=== PATIENT | male | born 1975 | race American Indian/Alaskan Native ===

== ENCOUNTER 2016-03-06 21:29 | Emergency (ER) | payer MEDICARE ==
[2016-03-07] MEDS ORDERED: CATAPRES ONE (02:08)
[2016-03-07] MEDS ORDERED: BENADRYL ONE (02:08)
[2016-03-07] MEDS ORDERED: DECADRON ONE (02:08)
[2016-03-07] MEDS ORDERED: PEPCID IV ONE ×2 (02:09→02:22)
[2016-03-07] MEDS ORDERED: DECADRON IM ONE (02:17)
[2016-03-07] MEDS ORDERED: BENADRYL IM ONE (02:21)
[2016-03-07] MEDS ORDERED: CATAPRES PO ONE ×2 (02:24→03:55)
--- NOTE | 2016-03-07 02:43 | Emergency Department Report ---
HPI - General Chief Complaint: Allergic Reaction Time Seen by Provider: 03/07/16 02:08 - HPI HPI: 40-year-old male with history of chronic hypertension presents today with an allergic reaction 7 days. Complaining of bilateral periorbital and facial edema. Patient has tried Benadryl without relief. Denies difficulty in breathing or difficulty in swallowing. Denies fever, chills, nausea, vomiting, chest pain, shortness of breath, abdominal pain. Allergen unknown. Denies history of similar symptoms. Past history of hypertension and has not taken his blood pressure medication today. ED Past Medical Hx - Past Medical History Previous Medical History?: Yes Hx Hypertension: Yes (Multiple Rx) Hx Renal Disease: Yes (Dialysis M W F) - Surgical History Past Surgical History?: Yes Additional Surgical History: Dialysis shunt - Social History Smoking Status: Current Some Day Smoker Substance Use Type: None - Medications Home Medications: Home Medications Medication Instructions Recorded Confirmed Last Taken Type Diphenhydramine HCl [Benadryl 25 mg PO Q6H #30 tablet 03/07/16 Unknown Rx Allergy TAB] Famotidine [Pepcid] 20 mg PO BID #30 tablet 03/07/16 Unknown Rx Prednisone [predniSONE 10 mg 10 mg PO .TAPER #1 tab.ds.pk 03/07/16 Unknown Rx (6-Day Pack, 21 Tabs)] ED Review of Systems ROS: Stated complaint: EYE SWELLING/ALLERGIC REACTION Other details as noted in HPI Constitutional: denies: chills, fever, malaise Eyes: denies: eye pain, eye discharge, vision change ENT: denies: ear pain, throat pain, congestion Respiratory: denies: cough, shortness of breath, wheezing Cardiovascular: denies: chest pain, palpitations Endocrine: no symptoms reported Gastrointestinal: denies: abdominal pain, nausea, vomiting Skin: pruritus Neurological: denies: headache, weakness Physical Exam - Physical Exam Vital Signs: Vital Signs 03/06/16 03/07/16 03/07/16 21:37 01:57 02:25 Temperature 98.7 F 98.8 F Pulse Rate 85 82 82 Respiratory 18 20 Rate Blood Pressure 177/113 Blood Pressure 183/118 177/113 [Right] O2 Sat by Pulse 100 98 Oximetry Physical Exam: GENERAL: The patient is well-developed and well-nourished. Patient is in NAD. HEAD: Normocephalic. Atraumatic. FACE: Minimal facial edema noted. No rash or erythema noted. EYES: Extraocular motions are intact, PERRL. NOSE: Normal nasal mucosa with no nasal discharge. THROAT: No erythema, swelling or exudates. NECK: Supple, nontender, without lymphadenopathy. CHEST/LUNGS: Clear to auscultation throughout. HEART/CARDIOVASCULAR: Regular rate and rhythm. No murmurs, rubs or gallops. ABDOMEN: Abdomen is soft, nontender. Bowel sounds normoactive. No guarding or rebound tenderness. EXTREMITIES:Peripheral pulses intact. Capillary refill less than 2 seconds. NEURO: Alert and oriented x 3. Normal gait. ED Course Vital Signs 03/06/16 03/07/16 03/07/16 21:37 01:57 02:25 Temperature 98.7 F 98.8 F Pulse Rate 85 82 82 Respiratory 18 20 Rate Blood Pressure 177/113 Blood Pressure 183/118 177/113 [Right] O2 Sat by Pulse 100 98 Oximetry ED Medical Decision Making - Lab Data Vital Signs 03/06/16 03/07/16 03/07/16 21:37 01:57 02:25 Temperature 98.7 F 98.8 F Pulse Rate 85 82 82 Respiratory 18 20 Rate Blood Pressure 177/113 Blood Pressure 183/118 177/113 [Right] O2 Sat by Pulse 100 98 Oximetry 03/07/16 03/07/16 03:48 04:04 Temperature Pulse Rate 74 74 Respiratory 18 Rate Blood Pressure 178/103 Blood Pressure 178/103 [Right] O2 Sat by Pulse 97 Oximetry - Medical Decision Making 32-year-old male with a history of chronic hypertension presents today with facial edema and pruritus. Patient did not take his blood pressure medication today and was given clonidine 0.3 mg. Patient is recommended to take his blood pressure medication as prescribed and follow up with primary care provider. Patient was given Pepcid, Decadron, Benadryl and reports minimal relief. Consulted with Dr. Allen. Patient is in no acute distress at this time. He will be discharged home and is encouraged to follow up with a primary care provider. He will be sent home on Benadryl, steroid pack, Pepcid and is encouraged to return to the emergency room for any worsening symptoms. Critical care attestation.: If time is entered above; I have spent that time in minutes in the direct care of this critically ill patient, excluding procedure time. ED Disposition Clinical Impression: Chronic hypertension Allergic reaction Qualifiers: Encounter type: initial encounter Qualified Code(s): T78.40XA - Allergy, unspecified, initial encounter Disposition: DISCHARGED TO HOME OR SELFCARE Is pt being admited?: No Does the pt Need Aspirin: No Condition: Stable Instructions: Anaphylaxis (ED), Allergies (ED), Chronic Hypertension (ED), Hypertension (ED) Additional Instructions: Follow-up with primary care provider. Return to the emergency department if symptoms worsen. Prescriptions: Diphenhydramine HCl [Benadryl Allergy TAB] 25 mg PO Q6H #30 tablet Famotidine [Pepcid] 20 mg PO BID #30 tablet Prednisone [predniSONE 10 mg (6-Day Pack, 21 Tabs)] 10 mg PO .TAPER #1 tab.ds.pk Referrals: HODAN AVILEZ [Other] - 3-5 Days Forms: Work/School Release Form(ED), Accompanied Note Time of Disposition: 04:26
[2016-03-07 03:49] VITALS: BP 178/103
== END 2016-03-07 04:29 | disposition home or self-care (01) ==
LOC: ED 21:29
DX: T78.40XA Allergy, unspecified, initial encounter (principal); I10 Essential (primary) hypertension; N28.9 Disorder of kidney and ureter, unspecified; F17.200 Nicotine dependence, unspecified, uncomplicated
CPT/HCPCS: 96372; 96374; 99282; J1100; J1200